=== PATIENT | female | born 1975 | race Caucasian/White ===

== ENCOUNTER 2024-06-23 07:51 | Outpatient (CLI) | payer OTHER, SELFPAY ==
--- NOTE | ~2024-06-23 | MM_ITS ---
EXAMINATION: MM screening bar BI w gregory HISTORY: Screening TECHNIQUE: Craniocaudal and mediolateral oblique 3-D tomosynthesis images were obtained and synthetic 2-D images were generated. CAD analysis was submitted and interpreted. COMPARISON: No prior mammogram is available for comparison at this institution. BREAST PARENCHYMAL COMPOSITION: Dense: The breasts are heterogeneously dense, which may obscure small masses FINDINGS: There is no evidence of suspicious mass, calcification, or architectural distortion to sugg est malignancy in either breast. There has been no suspicious interval change. IMPRESSION: 1. No mammographic evidence of malignancy. 2. Recommend routine screening mammography in one year. BI-RADS Category 1: Negative Reviewed, dictated and finalized at location B.
== END 2024-06-23 07:52 | disposition home or self-care (01) ==
PROVIDERS: PCP Obstetrics & Gynecology; Visit Provider Obstetrics & Gynecology
DX: Z12.31 Encounter for screening mammogram for malignant neoplasm of breast (principal)
CPT/HCPCS: 77063; 77067

== ENCOUNTER 2025-06-27 09:55 | Outpatient (CLI) | payer OTHER, SELFPAY ==
--- NOTE | ~2025-06-27 | MM_ITS ---
EXAMINATION: MM screening bar BI w gregory HISTORY: Screening TECHNIQUE: Craniocaudal and mediolateral oblique 3-D tomosynthesis images were obtained and synthetic 2-D images were generated. CAD analysis was submitted and interpreted. COMPARISON: 06/23/2024 BREAST PARENCHYMAL COMPOSITION: Not dense: There are scattered areas of fibroglandular density. FINDINGS: There is no evidence of suspicious mass, calcification, or architectural distortion to suggest malignancy in either breast. There has been no suspicious interval change. IMPRESSION: 1. No mammographic evidence of malignancy. 2. Recommend routine screening mammography in one year. BI-RADS Category 1: Negative Reviewed, dictated and finalized at location B.
--- OUTSIDE RECORDS SUMMARY | 2025-06-27 10:34 | XMS_ITS | Clinical Summary ---
Author Organization [facility] Healthcare Address [address] [place] [address] Care Team Providers Care Electronic Publications Specialist Name Role Phone Christofer Madrid AVIATION MECHANIC Primary Care Provi lorena Allergies No known active allergies Medications atorvastatin (LIPITOR) 20 mg tablet Take 20 mg by mouth daily. Active oxyCODONE-aceta minophen (PERCOCET) 7.5-325 mg per tabletIndicatio ns:Pain Take 1-2 tablets every 4 hours as needed for pain 60 tablet 05/13/2018 Active traMADol (ULTRAM) 50 mg tablet Take 1 tablet (50 mg total) by mouth every 6 (six) hours as needed for pain. 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 04/14/2018 Closed fracture of right tib ial plateau with delayed healing 04/14/2018 Surgical History Surgery Date Site/Laterality Comments UMBILICAL HERNIA REPAIR HYSTERECTOMY SECTION APPENDECTOMY Medical History Medical History Date Comments PONV (postoperative nausea and vomiting) Hyperlipidemia Obesity Meniscal injury right Arthritis Family History Medical History Relation Name Comments Diabetes Father Heart disease Father Hypertension Father Stroke Father Arthritis Mother Diabetes Mother Mental illness Mother Relation Name Status Comments Father Mother Social History Tobacco Use Types Packs/Day Years Used Date Smoking Tobacco: Never Smokeless Tobacco: Never Alcohol Use Standard Drinks/Week Comments Yes 0 (1 standard drink = 0.6 oz pur e alcohol) occassional Comments No Sex and Gender Information Value Date Recorded Sex Assigned at Not on file Legal Sex Female 1:30 PM 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 Gender Identity Not on file Sexual Orientation Not on file 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 Not on file Not on file Obstetrics History Last Filed Vital Signs Vital Sign Reading Time Taken Comments Blood Pressure 111/73 05/13/2018 3:35 PM CDT Pulse 84 05/13/2018 3:35 PM CDT Temperature 37.3 C (99.2 F) 05/13/2018 1:36 PM CDT Respiratory Rate 14 05/13/2018 3:35 PM CDT Oxygen Saturation 93% 05/13/2018 3:35 PM CDT Inhaled Oxygen Concentration - - Weight 140.2 kg (309 lb) 06/15/2018 11:40 AM CDT Height 163.8 cm (5' 4.5) 06/15/2018 11:40 AM CD T Body Mass Index 52.22 06/15/2018 11:40 AM CDT Plan of Treatment Not on file Medical Devices Implanted Type Area Raking Machine Operator Device Identifier Shelf Expiration Date Model / Serial / Lot System Acc[employer] Bone [employer]ement - [id number] Implanted:Qty: 1 on 05/13/2018 by Arslan Canela MD at [facility] [employer] 12/09/2020 [id number] / / [id number] Joint Implanted:Qty: 1 on 05/13/2018 by Arslan Canela MD at [facility] [employer] 08/28/2020 [id number] (201.050) / [id number] / [id number] Insurance [facility] CHOICE PLUS Care Teams Electronic Publications Specialist Relationship Specialty Start Date End Date Christofer Madrid NP PCP - General 10/15/21
--- OUTSIDE RECORDS SUMMARY | 2025-06-27 10:34 | XMS_ITS | Clinical Summary ---
Author Organization [facility] Administrative Offices Address [address] [place] [address] Care Team Providers Care Knitting Machine Fixer Name Role Phone Unavailable Primary Care Provider Unavailabl e Allergies No known active allergies Medications atorvastatin (LIPITOR) 20 mg tablet Take 20 mg by mouth daily. Active meloxicam (MOBIC) 15 mg tablet Take 15 mg by mouth daily. Active multivitamin (DAILY-BRIDGER) tablet Take 1 Tablet by mouth daily. Active ascorbic acid, vitamin C, (VITAMIN C) 500 mg tablet Take 500 mg by mouth daily. Active fexofenadine (SHEY) 180 mg tablet Take 180 mg by mouth daily. Active HYDROcodone-acet aminophen (HYCET) 7.5-325 mg/15 mL SolutionIndicati ons:Class 3 severe obesity with body mass index (BMI) of 50.0 to 59.9 in adult, unspecified obesity type, unspecified whether serious comorbidity present Take 15 mL by mouth every 6 hours as needed for Pain. Max Daily Amount: 60 mL 280 mL 05/09/2020 2:36 PM CDT 05/08/2020 Active famotidine (PEPCID) 20 mg tablet Take 1 Tablet (20 mg) by mouth 2 times daily. 60 Tablet 2 05/09/2020 2:36 PM CDT 05/08/2020 Active ondansetron (Zofran) 4 mg Tablet Take 1 Tablet (4 mg) by mouth every 8 hours as needed for Nausea or Nausea/Emes is. 50 Tablet 05/09/2020 2:36 PM CDT 05/08/2020 Active Active Problems Problem Noted Date Diagnosed Date S/P laparoscopic sleeve gastrectomy 05/08/2020 Postoperative pain 05/08/2020 Morbid obesity with body mass index of 40.0-49.9 01/27/2020 Osteoarthritis of knee 01/27/2020 Chronic pain of both knees 01/15/2019 Mixed hyperlipidemia 01/15/2019 Family History Medical History Relation Name Comments Diabetes Father Heart Disease Father Stroke Father Heart Disease Mother Hypertension Mother Relation Name Status Comments Father Mother Alive Sister Alive Social History Tobacco Use Types Packs/Day Years Used Date Smoking Tobacco: Never Smokeless Tobacco: Never Alcohol Use Standard Drinks/Week Comments Yes 0 (1 standard drink = 0.6 oz pur e alcohol) rare Comments No Sex and Gender Information Value Date Recorded Sex Assigned at Not on file Legal Sex Female 3:48 PM CDT Gender Identity Not on file Sexual Orientation Not on file Last Filed Vital Signs Vital Sign Reading Time Taken Comments Blood Pressure 139/80 05/09/2020 12:42 PM CDT Pulse 65 05/09/2020 12:42 PM CDT Temperature 36.9 C (98.5 F) 05/09/2020 12:42 PM CDT Respiratory Rate 18 05/09/2020 12:42 PM CDT Oxygen Saturation 100% 05/09/2020 12:42 PM CDT Inhaled Oxygen Concentration - - Weight 131.1 kg (289 lb) 05/08/2020 5:20 PM CDT Height 162.6 cm (5' 4) 05/08/2020 5:20 PM CDT Body Mass Index 49.61 05/08/2020 5:20 PM CDT Plan of Treatment Health Maintenance Due Date Last Done Comments DTAP/TDAP/TD VACCINES (1 - Tdap) 1995 HEPATITIS B VACCINES (1 of 3 - 19+ 3-dose series) 05/31 HPV/Cotest (21-29) 1997 CERVICAL CANCER SCREENING 2006 HPV/Cotest (30-65) 2006 PAP SMEAR 2006 BREAST CANCER SCREENING 2016 COLORECTAL SCREENING 2021 Colorectal Cancer Screening 2021 FIT-DNA Q 3 years 2021 FIT/FOBT Q 1 year 2021 Flex Sig/CT Colonography Q 5 years 2021 Pre-Diabetes and Diabetes Screening 05/09/202305/09 INFLUENZA VACCINE (#1) 2025 Medical Devices Implanted Type Area Spinning Frame Cleaner Device Identifier Shelf Expiration Date Model / Serial / Lot Seamguard Endogia 60 Blk [id number] - [id number] Implanted:Qty : 1 on 05/08/2020 by Mor Wolf MD at [facility] N/A: Abdomen [employer] 10/27/2022 [id number] / / [id number] Seamguard Endogia 60 Blk [id number] - [id number] Implanted:Qty : 1 on 05/08/2020 by Mor Wolf MD at [facility] N/A: Abdomen [employer] 10/27/2022 [id number] [id number] / / [id number] Seamguard Endogia 60 Prpl [id number] - [id number] Implanted:Qty : 2 on 05/08/2020 by Mor Wolf MD at [facility] N/A: Abdomen [employer] 10/31/2022 [id number] [id number] / / [id number] Seamguard Endogia 60 Prpl [id number] - [id number] Implanted:Qty : 1 on 05/08/2020 by Mor Wolf MD at [facility] N/A: Abdomen [employer] 10/31/2022 [id number] 0P / / [id number] Procedures Procedure Name Priority Date/Time Associated Diagnosis Comments HEMOGLOBIN A1C Stat 05/09/2020 7:09 AM CDT from Last 3 Months or Most Recently Relevant to Health Maintenance Results * HEMOGLOBIN A1C (05/09/2020 7:09 AM CDT) HEMOGLOBIN A1C 5.2 <=5.6 % 05/09/2020 10:10 AM CDT [facility] EST. AVG GLUCOSE, A1C 103 mg/dL 05/09/2020 10:10 AM CDT [facility] [employer] [facility] Blood Venipuncture / Unknown 05/09/2020 7:09 AM CDT 05/09/2020 7:24 AM CDT [facility] - 05/09/2020 10:10 AM CDT HGB A1C INTERPRETATION NORMAL: <5.7% PRE-DIABETES: 5.7 - 6.4% DIABETES: 6.5% OR GREATER Eyad Cedillo MD CHEMISTRY ORDERABLES Final Resul t [facility] CLIA# [id number] [place] [address] from Last 3 Months or Most Recently Relevant to Health Maintenance Insurance [employer] OPEN ACCESS RX [employer] RX Member Subscriber Plan / Payer (Ef fective for All Dates) Name:Terrie PIMENTEL Relation to Subscriber:Self Name:Terrie PIMENTEL Payer ID:Not on file Group ID:[id number] Type:RX Commercial Address: [address] Advance Directives For more information, please contact: [phone] Documents on File Type Date Recorded 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
--- OUTSIDE RECORDS SUMMARY | 2025-06-27 10:34 | XMS_ITS | Encounter Summary ---
Author Organization [facility] Health Address [address] [place] [address] Care Team Providers Care Railway Signal Electrician Name Role Phone Christofer Madrid APR[facility]JAM[facility] Primary Care Provide r Gloria Dye MANAGER VOICE[facility] Primary Care Provider [phone] Parvin Sapp MANAGER [facility] Primary Care Provider [phone] Sarah Turner PA-C Primary Care Provider [phone] Reason for Visit * Reason Onset Date Comments Weight loss 07/08/2019 need surgery Referral 07/13/2019 1st attempt to c ontact pt LM Returned Call 07/13/2019 message relayed Encounter Details Date Type Department Care Team ([facility] st Contact Info) Description 07/08/2019 Telephone [facility] General Internal Medicine [address] [address] Christofer Madrid, MANAGER VOICE-[facility] [place] [address] Weight loss (need surgery); Referral (1st attempt to contact pt LM ); Returned Call (message relayed) Social History Tobacco Use Types Packs/Day Years Used Date Smoking Tobacco: Never Cigarettes Smokeless Tobacco: Never Snuff, Chew Alcohol Use Standard Drinks/Week Comments Yes 1 (1 standard drink = 0.6 oz pur e alcohol) 01/01/2019 last Comments No Sex and Gender Information Value Date Recorded Sex Assigned at Not on file 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 If patient has already seen a bariatric surgeon and has surgery scheduled, patient needs to make appt for surgical clearance. Thanks, STU Verduzco Pt reports that she has already been referred to bariatric surgery, has had appt's with the provider and lab work completed as well. Pt was warm transferred to [facility] scheduling for assistance with making an appt for surgical clearance * Telephone Encounter - Lu Kelly - 07/13/2019 4:05 PM CDT 1st attempt to contact patient to request additional information and unable to reach. Left message with affiliation and contact number, , no pertient patient information left on voicemail. Will re attempt at a later time. SOFIA Harper's Message Does patient need referral to bariatric surgery? If patient has already seen a bariatric surgeon and has surgery scheduled, patient needs to make appt for surgical clearance. Thanks, STU Verduzco * Telephone Encounter - Cheyanne Cobos RN - 07/08/2019 3:59 PM CDT Wants Weight loss surgery Bariatric Would like approval for the surgery so she get surgery Please advise [phone] documented in this encounter Plan of Treatment Upcoming Encounters Date Type Department Care Team (Late st Contact Info) Description 12/12/2025 10:30 AM CDT Office Visit [facility] - Internal Med [address] [facility] [place] [phone] Sarah Turner PA-C [address] [facility] [place] [address] documented as of this encounter Visit Diagnoses Not on filedocumented in this encounter Care Teams Railway Signal Electrician Relationship Specialty Start Date End Date Christofer Madrid APRN-CNP PCP - General 01/15/19 01/06/22 Gloria Dye APRN-CNP [address] [place] [phone] PCP - General 01/07/22 01/13/23 Parvin Sapp APRN-CNP [address] [place] [phone] PCP - General 01/14/23 12/05/24 Sarah Turner PA-C [address] [place] [address] [place] [address] PCP - General Physician Telecasting Technician 12/06/24 documented as of this encounter
--- OUTSIDE RECORDS SUMMARY | 2025-06-27 10:34 | XMS_ITS | Clinical Summary ---
Author Organization [facility] Address [address] [place] [address] Care Team Providers Care Dental Insurance Biller Name Role Phone Sarah Turner PA-C Primary Care Provider Source Comments [facility],non-owned Affiliates and Associated Physician Practices is amultiple site organization consisting of ambulatory clinics and hospital sitesin [place], [place], [place] and [place]. This disclosure is being madepursuant to the Care Everywhere program and may not contain all information available regarding this patient. Last updated 18.[facility] Allergies No known active allergies Medications * Be aware that medications may not be up to date on this document. Alwaysverify current medications with the patient. Multiple Vitamins-Minera ls (CENTRUM PO) Take by mouth once daily Active famotidine (PEPCID) 20 MG tablet Take 1 (one) tablet by mouth once daily Active ferrous gluconate 324 (38 Fe) MG tablet Take 1 (one) tablet by mouth once daily Active senna (Senokot) 8.6 MG tablet Take by mouth once daily Active cetirizine (ZyrTEC) 10 MG chew tablet Take 1 (one) tablet by mouth once daily Active cyanocobalamin (Vitamin B-12) 1000 MCG tablet Take 1 (one) tablet by mouth once daily Active lutein 10 MG tablet Take 2 (two) tablets by mouth once daily 4 Active ascorbic acid (Vitamin C) 250 MG tablet Take 1 (one) tablet by mouth once daily Active niacin CR (Niaspan) 500 MG tablet Take 1 (one) tablet by mouth at bedtime Active docusate sodium (Colace) 100 MG capsule Take 1 (one) capsule by mouth once daily Active calcium-vitamin D (Os-Jose 500 + D) 500-200 mg-unit tablet Take 1 (one) tablet by mouth once daily Active zinc sulfate (Zincate) 220 (50 ZN) MG capsule Take 1 (one) capsule by mouth once daily Active omeprazole (PriLOSEC) 20 MG capsule Take 1 (one) capsule by mouth daily before breakfast Active Active Problems Problem Noted Date Diagnosed Date Gastroesophageal reflux disease without esophagi tis 01/06/2022 S/P gastric sleeve procedure 01/06/2022 Chronic pain of both knees 01/15/2019 Mixed hyperlipidemia 01/15/2019 Encounters Date Type Department Care Team Description 05/13/2025 Travel from Last 3 Months Immunizations Immunization Administration Dates Next Due Covfredy Moderna primary monova lent 12+ yr 0.5mL 10/21/2020,09/27/2020 Covid Pfizer primary monoval ent 12+ yr 0.3mL Purple cap 12/11/2021 DTAP, HISTORIC VACCINE 05/10/1980,1977,1976,1976,1976 FLU VACCINE TRI IIV3 SPLIT I M (FLUVIRIN) 06/14/2015,07/27/2014 INFLUENZA VACCINE 07/20/2024,08/01/2021,07/30/20 19 MEASLES 04/30/1990 MMR VACCINE 05/09/2014 MUMPS 03/24/1982 POLIO,HISTORIC VACCINE 05/10/1980,1977,03/25/1977,1976,1976 RUBELLA 11/16/1977 TDAP, HISTORIC VACCINE 05/03/2014 Family History Medical History Relation Name Comments Diabetes - Type 2 Brother CAD (Coronary Artery Disease) Father CVA Father Diabetes - Type 2 Father Diabetes - Type 2 Mother Hypertension Mother Diabetes - Type 2 Sister Relation Name Status Comments Brother Alive Daughter 23 Alive Father Mother Sister Alive Social History Tobacco Use Types Packs/Day Years Used Date Smoking Tobacco: Never Smokeless Tobacco: Never Snuff, Chew Tobacco Cessation:Counseling Given: Not Answered Alcohol Use Standard Drinks/Week Comments Not Currently 0 (1 standard drink = 0.6 oz pur e alcohol) 01/01/2019 last PHQ-2 Answer Date Recorded Patient Health Questionnaire-2 Score 0 12/03/2024 Comments No Sex and Gender Information Value Date Recorded Sex Assigned at Not on file Legal Sex Female 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 Gender Identity Not on file Sexual Orientation Not on file Last Filed Vital Signs Vital Sign Reading Time Taken Comments Blood Pressure 108/68 12/03/2024 1:23 PM BENCH MANAGER Pulse 70 12/03/2024 1:23 PM BENCH MANAGER Temperature 36.7 C (98 F) 12/03/2024 1:23 PM BENCH MANAGER Respiratory Rate 16 01/19/2024 2:20 PM CDT Oxygen Saturation 98% 12/03/2024 1:23 PM BENCH MANAGER Inhaled Oxygen Concentration - - Weight 78 kg (172 lb) 12/03/2024 1:23 PM BENCH MANAGER Height 165.1 cm (5' 5) 12/03/2024 1:23 PM BENCH MANAGER Body Mass Index 28.62 12/03/2024 1:23 PM BENCH MANAGER Plan of Treatment Upcoming Encounters Date Type Department Care Team (Late st Contact Info) Description 12/12/2025 10:30 AM CDT Office Visit [facility] - Internal Med [address] [facility] [place] [phone] Sarah Turner PA-C [address] [facility] DEPT [place] [phone] Health Maintenance Due Date Last Done Comments COLON MONITORING 1976 COLONOSCOPY - COLON CA SCREENING 1976 CT COLONOGRAPHY - COLON CA SCREENING 1976 FIT - COLON CA SCREENING 1976 FLEX SIG - COLON CA SCREENING 1976 MAMMOGRAM 10/15/2023 10/15/2021, 09/29, 10/15/2021, Additional history exists DTAP/TDAP/TD VACCINES (6 - Td or Tdap) 05/03/2024 05/03/2014, 05/10/1980, 02/25/1978, Additional history exists COVID-19 VACCINE ( season) 2025 12/11/2021, 10/21/2020, 09/27/2020 INFLUENZA VACCINE (#1) 2025 , 08/01/2021, 07/30/2019, Additional history exists LIPID TESTING 06/22/2025 06/22/2020, 04/05/2019 ZOSTER VACCINE (1 of 2) 2026 COLOGUARD (AGES 45-75) - COLON CA SCREENING 02/05/2027 02/06/2024 Colorectal Cancer Screening 02/05/2027 SCREENING FOR DIABETES 12/18/2027 5, 06/22/2020, 06/22/2020, Additional history exists DEPRESSION SCREENING Completed 12/03/2024, 01/19/2024, 01/13/2023 HEPATITIS B VACCINE Discontinued HEPATITIS C SCREENING Discontinued HIB VACCINE Aged Out No longer eligi ble based on patient's age to complete this topic HIV SCREENING Discontinued HPV VACCINE Aged Out No longer eligi ble based on patient's age to complete this topic MENINGOCOCCAL (Group B) VACCINE SHARED DECISION-MAKING Aged Out No longer eligible based on patient's age to complete this topic MENINGOCOCCAL GROUPS A/C/Y/W VACCINE Aged Out No longer eligible based on patient's age to complete this topic Procedures Procedure Name Priority Date/Time Associated Diagnosis Comments BASIC METABOLIC PANEL (CALCIUM TOTAL) 12/17/2024 11:55 AM CDT MAMMOGRAM Routine 10/15/2021 LIPID PROFILE 06/22/2020 10:39 AM CDT from Last 3 Months or Most Recently Relevant to Health Maintenance Results * BASIC METABOLIC PANEL (CALCIUM TOTAL) (12/17/2024 11:55 AM CDT) Pathologist [facility] Glucose 81 65 - 99 mg/dL [facility] Comment: Fasting reference interval BUN 14 7 - 25 mg/dL [facility] Creatinine 0.56 0.50 - 0.99 mg/dL [facility] eGFR by Cystatin C 113 > OR = 60 mL/min/1. 73m2 [facility] BUN/Creatinine Ratio SEE NOTE: 6 - 22 (calc) [facility] Comment: Not Reported: BUN and Creatinine are within reference range. Sodium 138 135 - 146 mmol/L [facility] Potassium 4.1 3.5 - 5.3 mmol/L [facility] Chloride 105 98 - 110 mmol/L [facility] CO2 24 20 - 32 mmol/L [facility] Calcium 9.1 8.6 - 10.2 mg/dL [facility] Comment: REPORT COMMENT: FASTING:YES Test [facility] [id number] [place] [address] LONA CARRILLO MD 12/17/2024 11:5 5 AM CDT 12/17/2024 11:56 AM CDT Sarah Turner PA-C LAB - CHEMISTRY ORDERABLES Final Result [address] [address] * MAMMOGRAM (10/15/2021) Anatomical Region Laterality Modality Other Historical Provider SCANNING ONLY Final Res ult * (ABNORMAL) LIPID PROFILE (06/22/2020 10:39 AM CDT) Cholesterol 91 <200 mg/dL [facility] HDL Cholesterol 36(L) > OR = 50 mg/dL [facility] Triglycerides 59 <150 mg/dL [facility] LDL Calculated 41 mg/dL (calc) [facility] Comment: Reference range: <100 Desirable range <100 mg/dL for primary prevention; <70 mg/dL for patients with CHD or diabetic patients with > or = 2 CHD risk factors. LDL-C is now calculated using the Margarito-Mccoy calculation, which is a validated novel method providing better accuracy than the Friedewald equation in the estimation of LDL-C. Margarito SS et al. CAL. 2013;310(19): 7868-6520 (http://education.mobintent.com/faq/QHQ066) CHOL/HDLC RATIO 2.5 <5.0 (calc) [facility] Non HDL Cholesterol 55 <130 mg/dL (calc) [facility] Comment: For patients with diabetes plus 1 major ASCVD risk factor, treating to a non-HDL-C goal of <100 mg/dL (LDL-C of <70 mg/dL) is considered a therapeutic option. Test Performed at: [facility] [address] [place] [address] ZACK MURPHY DO,MPH 06/22/2020 10:3 9 AM CDT 06/22/2020 10:39 AM CDT Christofer Madrid AEROGRAPHER-EVP [employer] LAB - CHEMISTRY ORDER TIMUR Final Result [facility] [id number] [place] [address] from Last 3 Months or Most Recently Relevant to Health Maintenance [place] [address] Care Teams Dental Insurance Biller Relationship Specialty Start Date End Date Sarah Truner PA-C [address] [facility] DEPT [place] [phone] PCP - General Physician Denture Contour Wire Specialist 12/06/24
== END 2025-06-27 09:56 | disposition home or self-care (01) ==
PROVIDERS: PCP Obstetrics & Gynecology
DX: Z12.31 Encounter for screening mammogram for malignant neoplasm of breast (principal); R92.8 Other abnormal and inconclusive findings on diagnostic imaging of breast
CPT/HCPCS: 77063; 77067